=== PATIENT | female | born 1945 | race Caucasian/White ===

== ENCOUNTER 2020-11-25 12:24 | Emergency (ER) | payer MEDICARE ==
[~2020-11-25] VITALS: Ht 152.4 cm; Wt 56.4 kg
--- NOTE | 2020-11-25 12:49 | NUR ---
NURSE HOTLINE CALLED BY FAMILY- NESTOR TO DISCUSS BLOOD PRESSURE FOR PT. PT WAS CONFUSED AND COULD NOT ANSWER QUESTIONS. WHEN EMS ARRIVED PT A &0 4. PT STARTED NEW MEDICATION 11/22 LOSARTAN POTASSIUM 50MG.
[2020-11-25 13:33] LABS: BASOPHILS % (AUTO) 0.3 % (0-1); EOSINOPHILS # (AUTO) 0.1 X10'3 (0-0.9); EOSINOPHILS % (AUTO) 1.7 % (0-6); HEMATOCRIT 38.3 % (35.0-45.0); HEMOGLOBIN 12.8 g/dl (12.0-16.0); LYMPHOCYTES # (AUTO) 1.3 X10'3 (1.1-4.8); LYMPHOCYTES % (AUTO) 20.1 % (21-51); MEAN CORPUSCULAR HEMOGLOBIN 29.9 PG (27.0-31.0); MEAN CORPUSCULAR HGB CONC 33.5 g/dL (33.0-36.5); MEAN CORPUSCULAR VOLUME 89.2 FL (78-98); MEAN PLATELET VOLUME 9.5 FL (7.4-10.4); MONOCYTES # (AUTO) 0.6 X10'3 (0-0.9); NEUTROPHILS # (AUTO) 4.6 X10'3 (1.8-7.7); NEUTROPHILS % (AUTO) 68.9 % (42-75); PLATELET COUNT 194 X10'3 (140-440); RED BLOOD COUNT 4.29 X10'6 (4.20-5.60); WHITE BLOOD COUNT 6.7 X10'3 (4.5-11.0)
[2020-11-25 13:44] LABS: PARTIAL THROMBOPLASTIN TIME 26 SECONDS (22-32)
[2020-11-25 13:48] LABS: ALANINE AMINOTRANSFERASE 12 U/L (12-78); ALBUMIN 3.5 G/DL (3.4-5.0); ALBUMIN/GLOBULIN RATIO 1.1 (1.1-1.5); ALKALINE PHOSPHATASE 125 IU/L (46-116); ANION GAP 8 (8-16); ASPARTATE AMINO TRANSFERASE 10 U/L (10-37); BILIRUBIN,TOTAL 0.4 MG/DL (0.1-1.0); BLOOD UREA NITROGEN 12 MG/DL (7-18); BUN/CREATININE RATIO 13.3 (6.6-38.0); CALCIUM 8.8 MG/DL (8.5-10.1); CHLORIDE 103 MMOL/L (99-107); GLUCOSE 96 MG/DL (70-104); POTASSIUM 3.6 MMOL/L (3.5-5.1); SODIUM 139 MMOL/L (135-145); TOTAL CARBON DIOXIDE 28.2 MMOL/L (24-32); TOTAL PROTEIN 6.8 G/DL (6.4-8.2); eGFR 61 ML/MIN
[2020-11-25] MEDS ORDERED: DOXYCYCLINE 100MG CAPSULE PO STA (13:52)
[2020-11-25 13:53] LABS: CLARITY,URINE CLEAR (Clear); COLOR,URINE YELLOW (Yellow); GLUCOSE, URINE NEGATIVE (Neg); KETONES,URINE NEGATIVE (Neg); LEUKOCYTE ESTERASE ,URINE MODERATE (Neg); NITRITES, URINE NEGATIVE (Neg); OCCULT BLOOD,URINE NEGATIVE (Neg); PH,URINE 6.5 (4.8-8.0); PROTEIN,URINE NEGATIVE (Neg); UROBILINOGEN,URINE 0.2 E.U/dL (0.2-1.0)
[2020-11-25] MEDS ORDERED: levoFLOXACIN-Levaquin 750MG/D5 150 ML IV ONE (13:55)
[2020-11-25 13:57] LABS: UA COLLECTION TYPE NON-SPECIFIED
[2020-11-25 13:58] LABS: BACTERIA,URINE NONE SEEN /HPF (Neg); MUCUS STRANDS FEW /LPF (Neg); RBC,URINE NONE SEEN /HPF (0-2); SQUAMOUS EPITHELIAL CELL,UR FEW /LPF (FEW); WBC,URINE 0-4 /HPF (0-4)
[2020-11-25 14:08] VITALS: BP 191/93
== END 2020-11-25 14:51 | disposition home or self-care (01) ==
LOC: ER 12:24
DX: I10 Essential (primary) hypertension (principal); Z85.118 Personal history of other malignant neoplasm of bronchus and lung; Z87.891 Personal history of nicotine dependence; Z88.0 Allergy status to penicillin; Z88.1 Allergy status to other antibiotic agents; Z91.013 Allergy to seafood
CPT/HCPCS: 36415; 70450; 71045; 80053; 81001; 85025; 85610; 85730; 86885; 86900; 86901; 87088; 93005; 99285

== ENCOUNTER 2022-04-17 08:47 | Emergency (ER) | payer MEDICARE, OTHER ==
[~2022-04-17] VITALS: Ht 165.1 cm; Wt 61.4 kg
--- NOTE | 2022-04-17 09:26 | NUR ---
provider at bedside.
--- NOTE | 2022-04-17 10:12 | NUR ---
to ct via wheelchair.
--- NOTE | 2022-04-17 10:18 | NUR ---
returned from ct without incident.
[2022-04-17 11:22] VITALS: BP 154/84
[2022-04-17] MEDS ORDERED: OXYC-481 PO (11:55)
== END 2022-04-17 12:11 | disposition home or self-care (01) ==
LOC: ER 08:47
DX: M25.551 Pain in right hip (principal); I10 Essential (primary) hypertension; G89.29 Other chronic pain; Z85.118 Personal history of other malignant neoplasm of bronchus and lung; Z88.0 Allergy status to penicillin; Z79.2 Long term (current) use of antibiotics; Z91.013 Allergy to seafood; Z79.899 Other long term (current) drug therapy
CPT/HCPCS: 72192; 73502; 99284

== ENCOUNTER 2023-08-01 20:43 | Emergency (ER) | payer BC, OTHER ==
[~2023-08-01] VITALS: Ht 166.4 cm; Wt 60.6 kg
[2023-08-01 20:54] VITALS: BP 161/76; PULSE 70; RESP 18; TEMP 97.3; O2SAT 96
[2023-08-01] MEDS ORDERED: sulfamethoxazole/trimethoprim DS (800/160mg) tablet PO ONE (23:35)
[2023-08-01] MEDS ORDERED: clindamycin 150mg capsule PO ONE (23:35)
[2023-08-01] MEDS ORDERED: acetaminophen 325mg tablet PO ONE (23:35)
[2023-08-01] MEDS ORDERED: SULF1TAB49 PO (23:39)
[2023-08-01] MEDS ORDERED: CLIN-156 PO (23:39)
== END 2023-08-01 23:51 | disposition home or self-care (01) ==
LOC: ER 20:43
DX: S51.851A Open bite of right forearm, initial encounter (principal); I10 Essential (primary) hypertension; G89.29 Other chronic pain; M54.9 Dorsalgia, unspecified; Z88.0 Allergy status to penicillin; Z88.1 Allergy status to other antibiotic agents; Z91.040 Latex allergy status; W54.0XXA Bitten by dog, initial encounter; Y93.89 Activity, other specified; Y92.89 Other specified places as the place of occurrence of the external cause; Y99.8 Other external cause status
CPT/HCPCS: 99284

== ENCOUNTER 2023-09-28 11:49 | Emergency (ER) | payer BC, OTHER ==
[~2023-09-28] VITALS: Ht 165.1 cm; Wt 61.4 kg
[2023-09-28 14:48] LABS: BILIRUBIN,URINE NEGATIVE (Neg); CLARITY,URINE SLIGHTLY CLOUDY (Clear); COLOR,URINE STRAW (Yellow); GLUCOSE, URINE NEGATIVE (Neg); KETONES,URINE NEGATIVE (Neg); LEUKOCYTE ESTERASE ,URINE SMALL (Neg); NITRITES, URINE POSITIVE (Neg); OCCULT BLOOD,URINE TRACE-INTACT (Neg); PROTEIN,URINE NEGATIVE (Neg); UROBILINOGEN,URINE 0.2 E.U/dL (0.2-1.0)
[2023-09-28 14:49] LABS: UA COLLECTION TYPE VOIDED
[2023-09-28 14:57] LABS: BASOPHILS % (AUTO) 0.4 % (0-1); EOSINOPHILS # (AUTO) 0.1 X10'3 (0-0.9); EOSINOPHILS % (AUTO) 1.1 % (0-6); HEMATOCRIT 27.1 % (35.0-45.0); HEMOGLOBIN 8.4 g/dl (12.0-16.0); LYMPHOCYTES # (AUTO) 1.5 X10'3 (1.1-4.8); LYMPHOCYTES % (AUTO) 24.6 % (21-51); MEAN CORPUSCULAR HEMOGLOBIN 20.5 PG (27.0-31.0); MEAN PLATELET VOLUME 9.2 FL (7.4-10.4); MONOCYTES # (AUTO) 0.5 X10'3 (0-0.9); MONOCYTES % (AUTO) 8.9 % (2-12); NEUTROPHILS # (AUTO) 3.9 X10'3 (1.8-7.7); PLATELET COUNT 207 X10'3 (140-440); RED CELL DISTRIBUTION WIDTH 19.8 % (11.5-14.5)
[2023-09-28 14:59] LABS: BACTERIA,URINE 2+ /HPF (Neg); MUCUS STRANDS NONE SEEN /LPF (Neg); RBC,URINE 0-2 /HPF (0-2); SQUAMOUS EPITHELIAL CELL,UR FEW /LPF (FEW); WBC CLUMPS,URINE MODERATE /HPF (NEGATIVE); WBC,URINE 50-100 /HPF (0-4)
[2023-09-28 15:04] LABS: PROTHROMBIN TIME 10.3 SECONDS (9.0-12.0)
[2023-09-28 15:08] LABS: ALANINE AMINOTRANSFERASE 15 U/L (12-78); ALBUMIN 3.2 G/DL (3.4-5.0); ALBUMIN/GLOBULIN RATIO 1.1 (1.1-1.5); ALKALINE PHOSPHATASE 93 IU/L (46-116); ANION GAP 4 (8-16); ASPARTATE AMINO TRANSFERASE 30 U/L (10-37); BILIRUBIN,TOTAL 0.2 MG/DL (0.1-1.0); BLOOD UREA NITROGEN 15 MG/DL (7-18); BUN/CREATININE RATIO 14.6 (10.0-20.0); CALCIUM 8.6 MG/DL (8.5-10.1); CHLORIDE 103 MMOL/L (99-107); CREATININE 1.03 MG/DL (0.40-0.90); GLUCOSE 98 MG/DL (70-104); POTASSIUM 4.4 MMOL/L (3.5-5.1); SODIUM 136 MMOL/L (135-145); TOTAL CARBON DIOXIDE 29.5 MMOL/L (24-32); TOTAL PROTEIN 6.2 G/DL (6.4-8.2); eCRCL 41 ML/MIN; eGFR 52 ML/MIN
[2023-09-28 15:14] LABS: ANISOCYTOSIS 2+; HYPOCHROMASIA 2+; MICROCYTOSIS 2+; PLATELET ESTIMATE NORMAL; POLYCHROMASIA 1+
[2023-09-28 15:15] LABS: ELLIPTOCYTES 1+; SCHISTOCYTES FEW
[2023-09-28] MEDS ORDERED: CefTRIAXone/D5W-Rocephin 1gm 50 ML IV ONE (17:25)
[2023-09-28] MEDS ORDERED: ketorolac trometh. 30mg/ml inj. IV ONE (17:35)
[2023-09-28] MEDS ORDERED: CEPH250T PO (17:43)
--- NOTE | 2023-09-28 18:42 | NUR ---
No allergic reaction noted from Ceftriaxone so far
[2023-09-28 18:56] VITALS: BP 133/78; PULSE 63; RESP 18; O2SAT 94
[2023-09-28 19:16] VITALS: TEMP 98.4
== END 2023-09-28 19:18 | disposition home or self-care (01) ==
LOC: ER 11:49
DX: M54.31 Sciatica, right side (principal); N39.0 Urinary tract infection, site not specified; I10 Essential (primary) hypertension; Z88.0 Allergy status to penicillin; Z88.1 Allergy status to other antibiotic agents; Z91.013 Allergy to seafood; Z79.2 Long term (current) use of antibiotics
CPT/HCPCS: 36415; 72131; 80053; 81001; 85008; 85025; 85610; 96365; 96375; 99285; J0696; J1885

== ENCOUNTER 2023-09-29 14:02 | Emergency (ER) | payer BC, OTHER ==
[~2023-09-29] VITALS: Ht 166.4 cm; Wt 135.0 kg
[~2023-09-29 14:02] MED LIST: CEPH250T PO
[2023-09-29 14:36] VITALS: TEMP 98.5
--- NOTE | 2023-09-29 22:42 | NUR ---
Pt alert, lying on gurney. Awaiting results from vascular US.
--- NOTE | 2023-09-29 23:01 | NUR ---
Pt aware awaiting results of vascular ultrasound.
[2023-09-30 00:11] VITALS: BP 171/68; PULSE 74; RESP 16; O2SAT 98
[2023-09-30] MEDS ORDERED: HYDROcodone/acetaminophen 5mg/325mg tablet PO ONE (00:25)
[2023-09-30] MEDS ORDERED: methylPREDNISolone sod succ 125mg/2ml vial IM ONE (00:25)
[2023-09-30] MEDS ORDERED: HYDR-3965 PO (00:33)
== END 2023-09-30 00:46 | disposition home or self-care (01) ==
LOC: ER 14:03
DX: S83.91XA Sprain of unspecified site of right knee, initial encounter (principal); M54.31 Sciatica, right side; I10 Essential (primary) hypertension; Z88.0 Allergy status to penicillin; Z88.1 Allergy status to other antibiotic agents; Z91.013 Allergy to seafood; Z79.2 Long term (current) use of antibiotics; X58.XXXA Exposure to other specified factors, initial encounter; Y93.89 Activity, other specified; Y92.89 Other specified places as the place of occurrence of the external cause; Y99.8 Other external cause status
CPT/HCPCS: 93971; 96372; 99285; J2930

== ENCOUNTER 2023-10-06 08:56 | Emergency (ER) | payer BC, OTHER ==
[~2023-10-06] VITALS: Ht 166.4 cm; Wt 61.4 kg
[~2023-10-06 08:56] MED LIST changes: +HYDR-3965 PO
[2023-10-06 09:28] VITALS: BP 116/69; PULSE 75; O2SAT 91
[2023-10-06 11:13] VITALS: RESP 16
[2023-10-06] MEDS ORDERED: ketorolac trometh. 30mg/ml inj. IM ONE (11:40)
[2023-10-06] MEDS ORDERED: HYDR-3965 PO (11:48)
[2023-10-06] MEDS ORDERED: PRED20TA PO (11:48)
[2023-10-06] MEDS ORDERED: LIDO1ADH67 TOP (11:48)
[2023-10-06 12:29] VITALS: TEMP 98.1
== END 2023-10-06 12:45 | disposition home or self-care (01) ==
LOC: ER 08:57
DX: M54.31 Sciatica, right side (principal); Z88.0 Allergy status to penicillin; Z88.1 Allergy status to other antibiotic agents
CPT/HCPCS: 96372; 99283; J1885